=== PATIENT | male | born 1995 | race Caucasian/White ===

== ENCOUNTER 2019-02-10 19:34 | Emergency (ER) | payer SELFPAY ==
[2019-02-10] MEDS ORDERED: HYDROXYZINE PAMOATE 50 MG CAPSULE PO ONE (19:55)
--- NOTE | 2019-02-10 19:55 | ER Document Report ---
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 He states he has been a very stressful week this week at work. He is [employer] duty [employer]. He states he has not been able to go see somebody about his anxiety due to his job in the [employer]. We will treat with Vistaril at this time get some blood in urine and have him seen by 1 of the providers. I have greeted and performed a rapid initial assessment of this patient. A comprehensive ED assessment and evaluation of the patient, analysis of test results and completion of medical decision making process will be conducted by an additional ED providers. - Related Data Allergies/Adverse Reactions: shellfish derived Allergy (Verified 02/10/19 19:45) Physical Exam - Vital signs Vitals: Temp Pulse Resp BP Pulse Ox 97.7 F 88 18 159/88 H 100 02/10/19 19:38 02/10/19 19:38 02/10/19 19:38 02/10/19 19:38 02/10/19 19:38 Course - Vital Signs Vital signs: Temp Pulse Resp BP Pulse Ox 97.7 F 88 18 159/88 H 100 02/10/19 19:38 02/10/19 19:38 02/10/19 19:38 02/10/19 19:38 02/10/19 19:38
--- NOTE | 2019-02-10 20:32 | ER Document Report ---
ED Psych Disorder / Suicide - General Chief Complaint: Anxiety Stated Complaint: ANXIETY Time Seen by Provider: 02/10/19 19:50 Primary Care Provider: [facility] [Provider Group] - Follow up as needed Mode of Arrival: Ambulatory Information source: Patient Notes: Patient presents complaining of anxiety symptoms for the past 4 months. Patient states he typically has symptoms about once a week. Patient states that when he has anxiety attacks his chest will feel tight he will feel jittery fatigued and nauseated. Patient does report increased stress at work as well as working long hours. Patient denies any cough or cold symptoms. Patient denies any history of any cardiac disease. Patient denies any previous history of mental illness. Patient denies any suicidal homicidal ideation. - HPI Patient complains to provider of: No: Homicidal plan, Homicidal attempt, Suicidal ideation, Suicidal plan, Suicidal attempt, Self injury Onset: This evening Quality of pain: No pain Suicide Risk Factors: Male. No: Substance abuse Situational problems related to: Work Associated symptoms: Anxious Similar symptoms previously: Yes Recently seen / treated by doctor: No - Related Data Allergies/Adverse Reactions: shellfish derived Allergy (Verified 02/10/19 19:45) Past Medical History - General Information source: Patient - Social History Smoking Status: Current Every Day Smoker Frequency of alcohol use: None Drug Abuse: None Occupation: Active duty Family History: Reviewed & Not Pertinent Patient has suicidal ideation: No Patient has homicidal ideation: No - Medical History Medical History: Negative Surgical Hx: Negative Review of Systems - Review of Systems Constitutional: No symptoms reported EENT: No symptoms reported Cardiovascular: Chest pain, Dizziness Respiratory: No symptoms reported. denies: Cough Gastrointestinal: Nausea. denies: Vomiting Genitourinary: No symptoms reported Male Genitourinary: No symptoms reported Musculoskeletal: No symptoms reported Skin: No symptoms reported Hematologic/Lymphatic: No symptoms reported Neurological/Psychological: Anxiety Physical Exam - Vital signs Vitals: Temp Pulse Resp BP Pulse Ox 97.7 F 88 18 159/88 H 100 02/10/19 19:38 02/10/19 19:38 02/10/19 19:38 02/10/19 19:38 02/10/19 19:38 - General General appearance: Appears well, Alert In distress: None - HEENT Head: Normocephalic, Atraumatic Eyes: Normal Conjunctiva: Normal Nasal: Normal Mouth/Lips: Normal Mucous membranes: Normal Neck: Normal, Supple. No: Lymphadenopathy, Thyromegally - Respiratory Respiratory status: No respiratory distress Chest status: Nontender Breath sounds: Normal. No: Rales, Rhonchi, Stridor, Wheezing Chest palpation: Normal - Cardiovascular Rhythm: Regular Heart sounds: S1 appreciated, S2 appreciated Murmur: No - Abdominal Inspection: Normal Distension: No distension Bowel sounds: Normal Tenderness: Nontender Organomegaly: No organomegaly - Back Back: Normal, Nontender - Extremities General upper extremity: Normal inspection, Normal strength General lower extremity: Normal inspection, Normal strength - Neurological Neuro grossly intact: Yes Cognition: Normal Orientation: AAOx4 Jennifer Coma Scale Eye Opening: Spontaneous [place] Coma Scale Verbal: Oriented [place] Coma Scale Motor: Obeys Commands [place] Coma Scale Total: 15 - Psychological Associated symptoms: Normal affect, Normal mood - Skin Skin Temperature: Warm Skin Moisture: Dry Skin Color: Normal Course - Re-evaluation Re-evalutation: 02/10/19 23:07 Patient presents with complaint of anxiety symptoms for the past 4 months. Patient without any suicidal homicidal ideation. No previous diagnosis of anxiety. Patient encouraged to follow-up with his primary doctor so that he can get a referral to mental health provider. Patient with stable vital signs. No concern for any acute cardiopulmonary process or left joint abnormality at this time. - Vital Signs Vital signs: Temp Pulse Resp BP Pulse Ox 97.9 F 85 16 145/75 H 99 02/10/19 23:33 02/10/19 23:33 02/10/19 23:33 02/10/19 23:33 02/10/19 23:33 - Laboratory Result Diagrams: 02/10/19 20:45 02/10/19 20:45 Laboratory results interpreted by me: 02/10/19 20:45 RBC 6.10 H MCV 70 L MCH 23.5 L RDW 14.3 H Labs- Entire Visit 02/10/19 02/10/19 02/10/19 20:45 20:45 20:45 WBC 6.5 RBC 6.10 H Hgb 14.4 Hct 43.0 MCV 70 L MCH 23.5 L MCHC 33.4 RDW 14.3 H Plt Count 181 Lymph % (Auto) 24.6 Jones % (Auto) 9.7 Eos % (Auto) 1.6 Baso % (Auto) 0.7 Absolute Neuts (auto) 4.1 Absolute Lymphs (auto) 1.6 Absolute Monos (auto) 0.6 Absolute Eos (auto) 0.1 Absolute Basos (auto) 0.0 Seg Neutrophils % 63.4 Sodium 144.0 Potassium 3.8 Chloride 103 Carbon Dioxide 27 Anion Gap 14 BUN 13 Creatinine 1.00 Est GFR ( Amer) > 60 Est GFR (MDRD) Non-Af > 60 Glucose 97 Calcium 10.0 TSH 0.61 - Diagnostic Test Radiology reviewed: Reports reviewed - EKG Interpretation by Me EKG shows normal: Sinus rhythm Rate: Normal Additional EKG results interpreted by me: 02/10/19 23:[address] elevation, QTc 416 Discharge - Discharge Clinical Impression: Anxiety Condition: Stable Disposition: HOME, SELF-CARE Instructions: Anxiety ([facility]) Additional Instructions: Return immediately for any new or worsening symptoms Followup with your primary care provider, call tomorrow to make a followup appointment Follow-up with a mental health provider for further evaluation and management. Your primary doctor can make a referral for you. Prescriptions: Hydroxyzine HCl [Atarax 25 mg Tablet] 2 tab PO TID PRN #20 tablet PRN Reason: Referrals: [facility] [Provider Group] - Follow up as needed
[2019-02-10 20:56] LABS: ABSOLUTE EOSINOPHILS # (AUTO) 0.1 10^3/uL (0.0-0.6); ABSOLUTE LYMPHOCYTES (AUTO) 1.6 10^3/uL (0.5-4.7); ABSOLUTE MONOCYTES (AUTO) 0.6 10^3/uL (0.1-1.4); ABSOLUTE NEUT (AUTO) 4.1 10^3/uL (1.7-8.2); BASOPHILS % (AUTO) 0.7 % (0-2); EOSINOPHILS % (AUTO) 1.6 % (0-6); HEMOGLOBIN 14.4 g/dL (13.5-17.0); LYMPHOCYTES % (AUTO) 24.6 % (13-45); MEAN CORPUSCULAR HEMOGLOBIN 23.5 pg (27.0-33.4); MEAN CORPUSCULAR HGB CONC 33.4 g/dL (32.0-36.0); MEAN CORPUSCULAR VOLUME 70 fl (80-97); MONOCYTES % (AUTO) 9.7 % (3-13); PLATELET COUNT 181 10^3/uL (150-450); RED CELL DISTRIBUTION WIDTH 14.3 % (11.5-14.0); SEGMENTED NEUTROPHILS % (AUTO) 63.4 % (42-78); TOTAL CELLS COUNTED % (AUTO) 100 %; WHITE BLOOD COUNT 6.5 10^3/uL (4.0-10.5)
[2019-02-10 21:15] LABS: ANION GAP 14 (5-19); BLOOD UREA NITROGEN 13 mg/dL (7-20); CARBON DIOXIDE 27 mmol/L (22-30); CHLORIDE 103 mmol/L (98-107); GLUCOSE 97 mg/dL (75-110); POTASSIUM 3.8 mmol/L (3.6-5.0)
--- NOTE | 2019-02-10 21:47 | RADIOLOGY REPORT (SQ) ---
EXAM DESCRIPTION: XR CHEST 2 VIEWS COMPLETED DATE/TME: 02/10/2019 20:30 CLINICAL HISTORY: 23 years, Male, anxiety, sob EXAM DESCRIPTION: CLINICAL HISTORY: anxiety, sob COMPARISON: None. FINDINGS: Two views of the chest are submitted. Cardiac silhouette appears normal. No focal parenchymal or pleural disease. No acute bony abnormality. There is no significant pulmonary vascular engorgement. IMPRESSION: No evidence of acute cardiopulmonary disease.
[2019-02-10 23:35] VITALS: BP 145/75
--- NOTE | 2019-02-11 01:10 | EKG REPORT ---
SEVERITY:- OTHERWISE NORMAL ECG - SINUS RHYTHM BORDERLINE RIGHT AXIS DEVIATION : Confirmed by: Marcin Tejada MD 11-Feb-2019 01:09:29
== END 2019-02-10 23:33 | disposition home or self-care (01) ==
LOC: ER 19:34
DX: F41.9 Anxiety disorder, unspecified (principal); R11.0 Nausea; F17.200 Nicotine dependence, unspecified, uncomplicated; Z91.013 Allergy to seafood
CPT/HCPCS: 36415; 71046; 80048; 84443; 85025; 93005; 93010; 99284